=== PATIENT | female | born 1950 | race African-American/Black ===

== ENCOUNTER 2022-08-12 11:03 | Outpatient (CLI) | payer MEDICARE, SELFPAY ==
--- NOTE | ~2022-08-12 | MM_ITS ---
EXAMINATION: MM stereotactic bx RT, MM post biopsy diagnostic RT, MM stereotactic specimen RT, Specim en Radiograph, Tissue Marker Clip Placement, Unilateral Mammogram DATE: 08/12/2022 13:10 (accession [id number]), 08/12/2022 13:11 (accession [id number]), 08/12 13:10 (accession [id number]) INDICATION: Abnormal mammogram: Soft tissue density with calcifications, posterior upper inner quadra nt of right breast. TECHNIQUE AND FINDINGS: The risks and potential benefits of the procedure were discussed with the patient and written informe d consent was obtained. Timeout procedure was performed. The patient was placed in the prone position on the dedicated stereotactic table with the right breast in caudal cranial compression, and the are a of interest was localized and targeted utilizing digital imaging with stereotaxis. After sterile preparation of the skin, 1% lidocaine was utilized for local anesthesia at the skin pun cture site and 1% lidocaine with epinephrine was utilized for deeper local anesthesia/is about the bi opsy site. A 9G Webtab vacuum assisted biopsy needle was advanced to the level of the calcification o f interest from a cephalad approach utilizing stereotactic guidance and a total of 12 tissue core bio psies were obtained. A specimen radiograph demonstrates that the calcifications of interest are included within the tissue cores. A tissue marker clip was then placed at the biopsy site. A digital mammographic exposure co nfirmed the successful deployment of the biopsy marker. The needle was removed and hemostasis was ac hieved. A sterile bandage was applied. The patient tolerated the procedure well and there is no emily dence of significant immediate complication. The patient was given verbal as well as written postpro cedural instructions prior to discharge from the department. Tissue cores were submitted to surgical pathology for histologic analysis. A 2-view right unilateral digital mammogram was obtained post procedure, demonstrating the tissue mar ker clip in approximately 6 cm lower position than expected. IMPRESSION: 1. Successful stereotactic biopsy of soft tissue and associated calcifications in the posterior upp er inner right breast, followed by tissue marker clip placement. Please refer to pathology report fo r histologic analysis. Reviewed, dictated and finalized at [facility]. Reviewed, dictated and finalized at [facility]. E PRACTITIONER PER DIEM IMPRESSION: 1. Successful stereotactic biopsy of soft tissue and associated calcification s in the posterior upper inner right breast, followed by tissue marker clip tiff cement. Please refer to pathology report for histologic analysis. IMPRESSION: 1. Successful stereotactic biopsy of soft tissue and associated calcification s in the posterior upper inner right breast, followed by tissue marker clip tiff cement. Please refer to pathology report for histologic analysis.
== END 2022-08-12 11:04 | disposition home or self-care (01) ==
PROVIDERS: PCP Student in an Organized Health Care Education/Training Program; Visit Provider Surgery
DX: R92.8 Other abnormal and inconclusive findings on diagnostic imaging of breast (principal)
CPT/HCPCS: 19081; 77065; 88305; A4648